=== PATIENT | female | born 1960 | race Caucasian/White ===

== ENCOUNTER → 2016-03-20 | Outpatient (CLI) | payer BC ==
--- NOTE | 2016-03-24 09:05 | MM ---
Reason for exam: screening (asymptomatic). Last mammogram was performed 1 year and 2 months ago. History: Patient is postmenopausal. Family history of breast cancer in mother at age 70 and breast cancer in sister at age 50. Physical Findings: A clinical breast exam by your physician is recommended on an annual basis and results should be correlated with mammographic findings. MG 3D Screening Mammo W/Cad Bilateral CC and MLO view(s) were taken. Prior study comparison: February 01, 2015, bilateral MG 3d screening mammo w/cad. July 20, 2013, bilateral MG screening mammo w CAD. June 23, 2011, bilateral digital screening mammo w/CAD. There are scattered fibroglandular densities. There is chronic nodularity in the right breast. No significant changes when compared with prior studies. ASSESSMENT: Negative, BI-RAD 1 RECOMMENDATION: Routine screening mammogram of both breasts in 1 year.
== END | disposition home or self-care (01) ==
LOC: RADMAMWWP 17:10
PROVIDERS: ATTEND Family Medicine
DX: Z12.31 Encounter for screening mammogram for malignant neoplasm of breast (principal)
CPT/HCPCS: 77063; G0202

== ENCOUNTER 2016-04-28 08:35 | Day surgery (SDC) | payer BC ==
[2016-04-24 09:37] VITALS: BMI 27.3
[~2016-04-28 08:35] MED LIST: LACTATED RINGERS 1,000 ML IV SCH; LIDOCAINE 1% 20 ML VIAL (10MG/ML) FOR IV START INTRADERMA PRN
[2016-04-28 08:59] VITALS: TEMP 98
[2016-04-28] MEDS ORDERED: PROPOFOL 10 MG/ML 20 ML VIAL IV ONE (09:47)
[2016-04-28] MEDS ORDERED: MIDAZOLAM 2 MG/2 ML VIAL ONE (09:47)
[2016-04-28 10:17] VITALS: RESP 18
--- NOTE | 2016-04-28 10:26 | P.PCN ---
Date of Procedure: 04/28/16 Procedure(s) Performed: Procedure: Total colonoscopy. Preoperative diagnosis: Screening for neoplasia. Postoperative diagnosis: Exam within normal limits. Preparation: HalfLytely prep. Sedation: Was provided by anesthesia. Brief clinical history: The patient is a 56-year-old female who is referred for this evaluation for screening for neoplasia. She had a prior exam more than 10 years ago. At this time, she has no abdominal complaints, bleeding or anemia. Procedure: With the patient on her left lateral decubitus position and after informed consent and adequate sedation, the perianal area was inspected and it did not show any fissures or fistulas. There were no masses felt on digital rectal examination. The Olympus CFQ 160L you colonoscope was then inserted in the rectum in the usual fashion and advanced to the cecum. The mucosa appeared healthy. No polyps or tumors were seen or any obvious diverticular disease. I retroflexed the endoscope in the rectum before the endoscope was withdrawn. The patient tolerated the procedure well. Plan: The patient was reassured. She will follow-up with you as planned and I recommended repeat exam in 10 years.
[2016-04-28 10:31] VITALS: BP 133/85; PULSE 57
== END 2016-04-28 10:47 | disposition home or self-care (01) ==
LOC: ORWHC2ENDO 08:35
DX: Z12.11 Encounter for screening for malignant neoplasm of colon (principal); J40 Bronchitis, not specified as acute or chronic; M19.90 Unspecified osteoarthritis, unspecified site; F17.200 Nicotine dependence, unspecified, uncomplicated; Z79.1 Long term (current) use of non-steroidal anti-inflammatories (NSAID); Z79.52 Long term (current) use of systemic steroids
CPT/HCPCS: J2250; J2704; G0121

== ENCOUNTER → 2016-08-15 | Outpatient (CLI) | payer BC ==
--- NOTE | 2016-08-15 14:46 | NM ---
EXAMINATION TYPE: NM bone/joint limited DATE OF EXAM: 08/15/2016 COMPARISON: Outside thoracic and lumbar spine x-rays August 14, 2016 HISTORY: Low back pain, lumbar region spondylolisthesis, lumbar region spinal stenosis, lumbar region collapse vertebra, idiopathic scoliosis, intervertebral disc degeneration with radiculopathy, skin p aresthesia, and thoracic spine pain all per order. Assess acuteness of L4 compression fracture. TECHNIQUE: After the intravenous administration of 25 mCi Tc 99m MDP. Images acquired 3 hours post injection. Multiple views of thoracic and lumbar are submitted in multiple projections. Findings: There is no commencing significant abnormal uptake at area of clinical concern superior L4 endplate to suggest acute fracture. Mild height loss is new from October 2014 radiograph however. M ild areas of increased uptake throughout the thoracolumbar spine are felt to reflect product of degen erative change. Additional compression fractures L1 and L2 levels do not show suspicious increased up take. IMPRESSION: No scintigraphic uptake to suggest acute compression fracture L4 level.
== END ==
LOC: RADNMMAIN 10:30
PROVIDERS: ATTEND Physical Medicine & Rehabilitation
DX: M48.06 Spinal stenosis, lumbar region (principal); M51.16 Intervertebral disc disorders with radiculopathy, lumbar region; M47.26 Other spondylosis with radiculopathy, lumbar region; M48.56XA Collapsed vertebra, not elsewhere classified, lumbar region, initial encounter for fracture; M41.26 Other idiopathic scoliosis, lumbar region
CPT/HCPCS: 78300; A9503

== ENCOUNTER 2017-08-13 14:28 | Emergency (ER) | payer BC ==
[2017-08-13 14:34] VITALS: RESP 18
[2017-08-13 15:11] LABS: Basophils # (A) 0.1 k/uL (0-0.2); Basophils % (A) 1 %; Eosinophils # (A) 0.2 k/uL (0-0.7); Eosinophils % (A) 3 %; HCT 45.8 % (34.0-46.0); HGB 15.9 gm/dL (11.4-16.0); Lymphocytes # (A) 1.8 k/uL (1.0-4.8); Lymphocytes % (A) 24 %; MCH 31.3 pg (25.0-35.0); MCHC 34.7 g/dL (31.0-37.0); MCV 90.1 fL (80.0-100.0); Mean Platelet Volume 8.4; Monocytes # (A) 0.4 k/uL (0-1.0); Monocytes % (A) 5 %; Neutrophils # (A) 5.1 k/uL (1.3-7.7); Neutrophils % (A) 66 %; Platelet Count 140 k/uL (150-450); RBC 5.08 m/uL (3.80-5.40); RDW 13.3 % (11.5-15.5); WBC 7.8 k/uL (3.8-10.6)
[2017-08-13 15:23] LABS: ALT 32 U/L (9-52); AST 20 U/L (14-36); Albumin 4.3 g/dL (3.5-5.0); Alkaline Phosphatase 97 U/L (38-126); Anion Gap 10 mmol/L; Blood Urea Nitrogen 14 mg/dL (7-17); Calcium 9.4 mg/dL (8.4-10.2); Carbon Dioxide 25 mmol/L (22-30); Chloride 107 mmol/L (98-107); Glucose 143 mg/dL (74-99); Sodium 142 mmol/L (137-145); Total Bilirubin 0.8 mg/dL (0.2-1.3); Total Protein 6.6 g/dL (6.3-8.2)
--- NOTE | 2017-08-13 15:24 | ED ---
General Adult HPI - General Chief complaint: Arrhythmia/Palpitations Stated complaint: heart palpitations Time Seen by Provider: 08/13/17 15:06 Source: patient, RN notes reviewed, old records reviewed Mode of arrival: ambulatory Limitations: no limitations - History of Present Illness Initial comments: 57 yo female presents for evaluation of palpitations. She has had intermittent palpitations over the past several years. She states that approximately 3 weeks ago she had an episode and then again today. This prompted medical evaluation. She was seen at an outside urgent care and sent in for evaluation. She denies any pain, denies chest tightness. She has had some dyspnea throughout the past several weeks. She denies any lower extremity pain or swelling. She is a current smoker, she reports multiple episodes of bronchitis but has no formal diagnosis of COPD. No history of CAD. No current medications. - Related Data Home Medications Medication Instructions Recorded Confirmed Fluocinolone 0.05% Solution 1 applic TOPICAL DAILY 08/13/17 08/13/17 Ketoconazole 2% Shampoo [Nizoral] 1 applic TOPICAL Q3D 08/13/17 08/13/17 Meloxicam [Mobic] 15 mg PO DAILY 08/13/17 08/13/17 Allergies Allergy/AdvReac Type Severity Reaction Status Date / Time No Known Allergies Allergy Verified 08/13/17 15:05 Review of Systems ROS Statement: Those systems with pertinent positive or pertinent negative responses have been documented in the HPI. ROS Other: All systems not noted in ROS Statement are negative. Past Medical History Past Medical History: Osteoarthritis (OA) History of Any Multi-Drug Resistant Organisms: None Reported Past Surgical History: Hysterectomy Additional Past Surgical History / Comment(s): colonoscopy Past Anesthesia/Blood Transfusion Reactions: No Reported Reaction Past Psychological History: Depression Smoking Status: Current every day smoker Past Alcohol Use History: None Reported Past Drug Use History: None Reported - Past Family History Mother Family Medical History: Cancer Brother(s) Family Medical History: Cancer Sister(s) Family Medical History: Cancer General Exam Limitations: no limitations General appearance: alert Head exam: Present: atraumatic, normocephalic Eye exam: Present: normal appearance, PERRL, EOMI ENT exam: Present: normal exam Neck exam: Present: normal inspection. Absent: tenderness, meningismus Respiratory exam: Present: wheezes. Absent: respiratory distress Cardiovascular Exam: Present: regular rate, irregular rhythm GI/Abdominal exam: Present: soft. Absent: distended, tenderness, guarding Extremities exam: Present: normal inspection, full ROM, normal capillary refill. Absent: pedal edema, calf tenderness Neurological exam: Present: alert, oriented X3, CN II-XII intact. Absent: motor sensory deficit Psychiatric exam: Present: normal affect, normal mood Skin exam: Present: warm, dry, intact. Absent: cyanosis, diaphoretic Course Vital Signs 08/13/17 08/13/17 14:32 16:25 Temperature 98 F Pulse Rate 49 L 73 Respiratory 18 18 Rate Blood Pressure 163/69 171/65 O2 Sat by Pulse 98 98 Oximetry EKG Findings - EKG Comments: EKG Findings:: EKG sinus rhythm, with marked sinus arrhythmia, nonspecific ST segment abnormalities including ST segment depression in the lateral precordium. Ventricular rate of 97, RI interval 148, QRS duration 78, QTC 477 Medical Decision Making - Medical Decision Making 57 female presenting with palpitations. Patient does have a irregular rhythm, this appears to be sinus with sinus arrhythmia however there is some concern for ectopic pacemaker with variable P-wave morphology. Electrolytes are obtained, these are negative for any acute abnormality. CBC is unremarkable. Troponin is negative. Patient has no pain. I would prefer she states for a second troponin to rule out any ischemia as her symptoms began approximately 2 hours prior to presentation. She declines. She is also offered observation for serial cardiac enzymes and cardiology consultation, however she declines. She will follow up as an outpatient. She will return with any worsening or changing symptoms. - Lab Data Result diagrams: 08/13/17 14:48 08/13/17 14:48 Lab Results 08/13/17 08/13/17 08/13/17 Range/Units 14:48 14:48 14:48 WBC 7.8 (3.8-10.6) k/uL RBC 5.08 (3.80-5.40) m/uL Hgb 15.9 (11.4-16.0) gm/dL Hct 45.8 (34.0-46.0) % MCV 90.1 (80.0-100.0) fL MCH 31.3 (25.0-35.0) pg MCHC 34.7 (31.0-37.0) g/dL RDW 13.3 (11.5-15.5) % Plt Count 140 L (150-450) k/uL Neutrophils % 66 % Lymphocytes % 24 % Monocytes % 5 % Eosinophils % 3 % Basophils % 1 % Neutrophils # 5.1 (1.3-7.7) k/uL Lymphocytes # 1.8 (1.0-4.8) k/uL Monocytes # 0.4 (0-1.0) k/uL Eosinophils # 0.2 (0-0.7) k/uL Basophils # 0.1 (0-0.2) k/uL PT (9.0-12.0) sec INR (<1.2) APTT (22.0-30.0) sec D-Dimer (<0.60) mg/L FEU Sodium 142 (137-145) mmol/L Potassium 4.0 (3.5-5.1) mmol/L Chloride 107 (98-107) mmol/L Carbon Dioxide 25 (22-30) mmol/L Anion Gap 10 mmol/L BUN 14 (7-17) mg/dL Creatinine 0.70 (0.52-1.04) mg/dL Est GFR (CKD-EPI)AfAm >90 (>60 ml/min/1.73 sqM) Est GFR (CKD-EPI)NonAf >90 (>60 ml/min/1.73 sqM) Glucose 143 H (74-99) mg/dL Calcium 9.4 (8.4-10.2) mg/dL Magnesium 2.0 (1.6-2.3) mg/dL Total Bilirubin 0.8 (0.2-1.3) mg/dL AST 20 (14-36) U/L ALT 32 (9-52) U/L Alkaline Phosphatase 97 (38-126) U/L Total Creatine Kinase 46 (30-135) U/L CK-MB (CK-2) 0.5 (0.0-2.4) ng/mL CK-MB (CK-2) Rel Index 1.1 Troponin I <0.012 (0.000-0.034) ng/mL Total Protein 6.6 (6.3-8.2) g/dL Albumin 4.3 (3.5-5.0) g/dL 08/13/17 Range/Units 14:48 WBC (3.8-10.6) k/uL RBC (3.80-5.40) m/uL Hgb (11.4-16.0) gm/dL Hct (34.0-46.0) % MCV (80.0-100.0) fL MCH (25.0-35.0) pg MCHC (31.0-37.0) g/dL RDW (11.5-15.5) % Plt Count (150-450) k/uL Neutrophils % % Lymphocytes % % Monocytes % % Eosinophils % % Basophils % % Neutrophils # (1.3-7.7) k/uL Lymphocytes # (1.0-4.8) k/uL Monocytes # (0-1.0) k/uL Eosinophils # (0-0.7) k/uL Basophils # (0-0.2) k/uL PT 9.8 (9.0-12.0) sec INR 1.0 (<1.2) APTT 24.6 (22.0-30.0) sec D-Dimer 0.21 (<0.60) mg/L FEU Sodium (137-145) mmol/L Potassium (3.5-5.1) mmol/L Chloride (98-107) mmol/L Carbon Dioxide (22-30) mmol/L Anion Gap mmol/L BUN (7-17) mg/dL Creatinine (0.52-1.04) mg/dL Est GFR (CKD-EPI)AfAm (>60 ml/min/1.73 sqM) Est GFR (CKD-EPI)NonAf (>60 ml/min/1.73 sqM) Glucose (74-99) mg/dL Calcium (8.4-10.2) mg/dL Magnesium (1.6-2.3) mg/dL Total Bilirubin (0.2-1.3) mg/dL AST (14-36) U/L ALT (9-52) U/L Alkaline Phosphatase (38-126) U/L Total Creatine Kinase (30-135) U/L CK-MB (CK-2) (0.0-2.4) ng/mL CK-MB (CK-2) Rel Index Troponin I (0.000-0.034) ng/mL Total Protein (6.3-8.2) g/dL Albumin (3.5-5.0) g/dL Disposition Clinical Impression: Palpitations, Sinus arrhythmia Disposition: HOME SELF-CARE Condition: Fair Instructions: Palpitations (ED) Is patient prescribed a controlled substance at d/c from ED?: No Referrals: Jason Grant MD [Primary Care Provider] - 1-2 days Deyvi Oliveira MD [STAFF PHYSICIAN] - 1-2 days Time of Disposition: 17:34
[2017-08-13 15:25] LABS: D-Dimer 0.21 mg/L FEU (<0.60); Partial Thromboplastin Time 24.6 sec (22.0-30.0); Prothrombin Time 9.8 sec (9.0-12.0)
--- NOTE | 2017-08-13 15:31 | XR ---
EXAMINATION TYPE: XR chest 2V DATE OF EXAM: 08/13/2017 COMPARISON: NONE HISTORY: Palpitations and chest pain TECHNIQUE: Frontal and lateral views of the chest are obtained. FINDINGS: There is no focal air space opacity, pleural effusion, or pneumothorax seen. The cardiac silhouette size is within normal limits. The osseous structures are intact. IMPRESSION: No acute cardiopulmonary process.
[2017-08-13 15:32] LABS: Creatine Kinase 46 U/L (30-135)
[2017-08-13 15:44] LABS: Creatine Kinase MB 0.5 ng/mL (0.0-2.4); Troponin I <0.012 ng/mL (0.000-0.034)
[2017-08-13] MEDS ORDERED: SODIUM CHLORIDE 0.9% 500 ML IV ONE (16:08)
[2017-08-13 17:43] VITALS: BP 137/72; PULSE 71; TEMP 98.2
== END 2017-08-13 17:48 | disposition home or self-care (01) ==
LOC: EC 14:28
DX: I49.8 Other specified cardiac arrhythmias (principal); R00.2 Palpitations; R06.2 Wheezing; M19.90 Unspecified osteoarthritis, unspecified site; F17.200 Nicotine dependence, unspecified, uncomplicated; Z79.1 Long term (current) use of non-steroidal anti-inflammatories (NSAID); Z79.52 Long term (current) use of systemic steroids; Z79.899 Other long term (current) drug therapy
CPT/HCPCS: 36415; 71046; 80053; 82550; 82553; 83735; 84484; 85025; 85379; 85610; 85730; 93005; 99285

== ENCOUNTER → 2018-02-04 | Outpatient (CLI) | payer BC ==
--- NOTE | 2018-02-05 11:17 | MM ---
Reason for exam: screening (asymptomatic). Last mammogram was performed 1 year and 11 months ago. History: Patient is postmenopausal. Family history of breast cancer in mother at age 70 and breast cancer in sister at age 50. Physical Findings: A clinical breast exam by your physician is recommended on an annual basis and results should be correlated with mammographic findings. MG Screening Mammo w CAD Bilateral CC and MLO view(s) were taken. Prior study comparison: March 20, 2016, bilateral MG 3d screening mammo w/cad. February 01, 2015, bilateral MG 3d screening mammo w/cad. There are scattered fibroglandular densities. No significant changes when compared with prior studies. ASSESSMENT: Benign, BI-RAD 2 RECOMMENDATION: Routine screening mammogram of both breasts in 1 year.
== END | disposition home or self-care (01) ==
LOC: RADMAMWWP 16:19
PROVIDERS: ATTEND Family Medicine
DX: Z12.31 Encounter for screening mammogram for malignant neoplasm of breast (principal)
CPT/HCPCS: 77067

== ENCOUNTER 2021-01-18 17:33 | Emergency (ER) | payer BC, OTHER ==
[2021-01-18] MEDS ORDERED: ONDANSETRON 4 MG/2 ML VIAL IVP STA (19:26)
[2021-01-18] MEDS ORDERED: HYDROmorphone 1 MG/ML 1 ML SYRINGE IVP STA (19:26)
--- NOTE | 2021-01-18 19:43 | ED ---
General Adult HPI - General Chief complaint: Recheck/Abnormal Lab/Rx Stated complaint: Feeding tube issues Time Seen by Provider: 01/18/21 19:03 Source: patient Mode of arrival: ambulatory Limitations: no limitations - History of Present Illness Initial comments: 60 year-old female patient currently being treated for esophageal cancer, presents to the emergency department for evaluation of drainage from around her PEG tube insertion site and inability to control her pain. She had the feeding tube placed in November. States she was admitted recently for infection to the site. States she has had increased drainage from the site and is concerned it is infected again. States that for the last two days she has been unable to control her pain. States she takes liquid norco and has a fentanyl patch and it seems that the medications are not working. Patient denies any fever or chills. States she has been vomiting. Denies any hematemesis. She is currently receiving chemotherapy and radiation at [facility] in [place]. She believes she is on antibiotics but she is unsure what antibiotic she is on. - Related Data Home Medications Medication Instructions Recorded Confirmed Albuterol Sulfate [Ventolin HFA] 2 puff INHALATION RT-Q4H PRN 01/18/21 01/18/21 Gabapentin [Gabapentin Oral Soln] 300 mg PO HS 01/18/21 01/18/21 HYDROcodone/APAP [Coffeen Elixir 15 - 20 ml PO Q4HR PRN 01/18/21 01/18/21 7.5-325Mg/15Ml] Metoclopramide HCl 10 mg PO TID PRN 01/18/21 01/18/21 Omeprazole 40 mg PO DAILY 01/18/21 01/18/21 Polyethylene Glycol 3350 [Miralax] 17 gm PO DAILY PRN 01/18/21 01/18/21 Prochlorperazine [Compazine] 10 mg PO QID PRN 01/18/21 01/18/21 Sennosides [Senna] 8.6 mg PO BID PRN 01/18/21 01/18/21 Umeclidinium Brm/Vilanterol Tr 1 puff INHALATION RT-DAILY 01/18/21 01/18/21 [Anoro Ellipta 62.5-25 Mcg INH] bisacodyL [Dulcolax] 10 mg RECTAL DAILY PRN 01/18/21 01/18/21 dexAMETHasone 1 dose PO DIRECTED 01/18/21 01/18/21 fentaNYL 12MCG/HR PATCH [Duragesic 1 patch TRANSDERM Q72H 01/18/21 01/18/21 12MCG/HR] Previous Rx's Medication Instructions Recorded Cephalexin [Keflex] 500 mg PO Q6HR #40 cap 01/18/21 Prochlorperazine [Compazine] 10 mg PO Q8H #20 tab 01/18/21 Allergies Allergy/AdvReac Type Severity Reaction Status Date / Time No Known Allergies Allergy Verified 01/18/21 21:46 Review of Systems ROS Statement: Those systems with pertinent positive or pertinent negative responses have been documented in the HPI. ROS Other: All systems not noted in ROS Statement are negative. Past Medical History Past Medical History: Osteoarthritis (OA) Additional Past Medical History / Comment(s): CA History of Any Multi-Drug Resistant Organisms: None Reported Past Surgical History: Hysterectomy Additional Past Surgical History / Comment(s): colonoscopy, feeding tube Past Anesthesia/Blood Transfusion Reactions: No Reported Reaction Past Psychological History: Depression Smoking Status: Never smoker Past Alcohol Use History: None Reported Past Drug Use History: None Reported - Past Family History Mother Family Medical History: Cancer Brother(s) Family Medical History: Cancer Sister(s) Family Medical History: Cancer General Exam Limitations: no limitations General appearance: alert, in no apparent distress, other (This is a well- developed, well-nourished adult female patient in mild distress related to pain.) ENT exam: Present: normal exam, normal oropharynx, mucous membranes moist Respiratory exam: Present: normal lung sounds bilaterally. Absent: respiratory distress, wheezes, rales, rhonchi, stridor Cardiovascular Exam: Present: regular rate, normal rhythm, normal heart sounds. Absent: systolic murmur, diastolic murmur, rubs, gallop, clicks GI/Abdominal exam: Present: soft, tenderness (midepigastric), normal bowel sounds, other (Left mid abdomen PEG tube, there is green clear drainage from the site. ). Absent: distended, guarding, rebound, rigid Neurological exam: Present: alert, oriented X3, CN II-XII intact Psychiatric exam: Present: normal affect, normal mood Skin exam: Present: warm, dry, intact, normal color. Absent: rash Course Vital Signs 01/18/21 01/18/21 17:56 22:08 Temperature 98.2 F Pulse Rate 115 H 106 H Respiratory 20 18 Rate Blood Pressure 106/73 126/83 O2 Sat by Pulse 98 97 Oximetry Medical Decision Making - Medical Decision Making 60 year-old female presented for drainage from around PEG tube insertion site. She also reported vomiting but states that is common for her since her diagnosis of esophageal cancer. Physical examination did reveal clear bilious drainage from the insertion site, mild erythema surrounding most likely due to irritati on. Labs reviewed and showed low sodium at 128, normal wbc count. She is afebrile with normal vital signs. She was given pain medication, nausea medication. Upon re-evaluation she states she is feeling better. She will be given keflex for possible early cellulitis. Prescription for Compazine. She is instructed to follow-up with her oncologist and primary care physician as soon as possible. Return parameters were discussed in detail. She verbalizes understanding and agrees with this plan. My attending is Dr. Mujica. - Lab Data Result diagrams: 01/18/21 20:26 01/18/21 20:26 Lab Results 01/18/21 01/18/21 01/18/21 Range/Units 20:26 20:26 20:26 WBC 7.5 (3.8-10.6) k/uL RBC 3.36 L (3.80-5.40) m/uL Hgb 9.7 L (11.4-16.0) gm/dL Hct 30.3 L (34.0-46.0) % MCV 90.3 (80.0-100.0) fL MCH 28.9 (25.0-35.0) pg MCHC 32.0 (31.0-37.0) g/dL RDW 17.6 H (11.5-15.5) % Plt Count 218 (150-450) k/uL MPV 8.4 Neutrophils % 91 % Lymphocytes % 3 % Monocytes % 4 % Eosinophils % 1 % Basophils % 0 % Neutrophils # 6.8 (1.3-7.7) k/uL Lymphocytes # 0.2 L (1.0-4.8) k/uL Monocytes # 0.3 (0-1.0) k/uL Eosinophils # 0.1 (0-0.7) k/uL Basophils # 0.0 (0-0.2) k/uL Anisocytosis Slight Sodium 128 L (137-145) mmol/L Potassium 3.9 (3.5-5.1) mmol/L Chloride 92 L (98-107) mmol/L Carbon Dioxide 30 (22-30) mmol/L Anion Gap 6 mmol/L BUN 15 (7-17) mg/dL Creatinine 0.26 L (0.52-1.04) mg/dL Est GFR (CKD-EPI)AfAm >90 (>60 ml/min/1.73 sqM) Est GFR (CKD-EPI)NonAf >90 (>60 ml/min/1.73 sqM) Glucose 112 H (74-99) mg/dL Plasma Lactic Acid Babatunde 1.8 (0.7-2.0) mmol/L Calcium 8.7 (8.4-10.2) mg/dL Total Bilirubin 0.5 (0.2-1.3) mg/dL AST 22 (14-36) U/L ALT 16 (4-34) U/L Alkaline Phosphatase 89 (38-126) U/L Total Protein 5.9 L (6.3-8.2) g/dL Albumin 3.1 L (3.5-5.0) g/dL Urine Color Urine Appearance (Clear) Urine pH (5.0-8.0) Ur Specific Bill[place] (1.001-1.035) Urine Protein (Negative) Urine Glucose (UA) (Negative) Urine Ketones (Negative) Urine Blood (Negative) Urine Nitrite (Negative) Urine Bilirubin (Negative) Urine Urobilinogen (<2.0) mg/dL Ur Leukocyte Esterase (Negative) 01/18/21 Range/Units 22:08 WBC (3.8-10.6) k/uL RBC (3.80-5.40) m/uL Hgb (11.4-16.0) gm/dL Hct (34.0-46.0) % MCV (80.0-100.0) fL MCH (25.0-35.0) pg MCHC (31.0-37.0) g/dL RDW (11.5-15.5) % Plt Count (150-450) k/uL MPV Neutrophils % % Lymphocytes % % Monocytes % % Eosinophils % % Basophils % % Neutrophils # (1.3-7.7) k/uL Lymphocytes # (1.0-4.8) k/uL Monocytes # (0-1.0) k/uL Eosinophils # (0-0.7) k/uL Basophils # (0-0.2) k/uL Anisocytosis Sodium (137-145) mmol/L Potassium (3.5-5.1) mmol/L Chloride (98-107) mmol/L Carbon Dioxide (22-30) mmol/L Anion Gap mmol/L BUN (7-17) mg/dL Creatinine (0.52-1.04) mg/dL Est GFR (CKD-EPI)AfAm (>60 ml/min/1.73 sqM) Est GFR (CKD-EPI)NonAf (>60 ml/min/1.73 sqM) Glucose (74-99) mg/dL Plasma Lactic Acid Bab[place]unde (0.7-2.0) mmol/L Calcium (8.4-10.2) mg/dL Total Bilirubin (0.2-1.3) mg/dL AST (14-36) U/L ALT (4-34) U/L Alkaline Phosphatase (38-126) U/L Total Protein (6.3-8.2) g/dL Albumin (3.5-5.0) g/dL Urine Color Yellow Urine Appearance Clear (Clear) Urine pH 6.5 (5.0-8.0) Ur Specific Bill[place] 1.019 (1.001-1.035) Urine Protein Negative (Negative) Urine Glucose (UA) Negative (Negative) Urine Ketones Negative (Negative) Urine Blood Negative (Negative) Urine Nitrite Negative (Negative) Urine Bilirubin Negative (Negative) Urine Urobilinogen <2.0 (<2.0) mg/dL Ur Leukocyte Esterase Negative (Negative) Disposition Clinical Impression: Cellulitis, abdominal wall, Vomiting Disposition: HOME SELF-CARE Condition: Good Instructions (If sedation given, give patient instructions): Cellulitis (ED), Acute Nausea and Vomiting (ED) Additional Instructions: Complete antibiotic prescription in full. Follow-up with your oncologist and primary care physician for recheck as soon as possible. Return to the emergency department for any new, worsening, or concerning symptoms. Prescriptions: Prochlorperazine [Compazine] 10 mg PO Q8H #20 tab Cephalexin [Keflex] 500 mg PO Q6HR #40 cap Is patient prescribed a controlled substance at d/c from ED?: No Referrals: Raven Watson MD [Primary Care Provider] - 1-2 days Time of Disposition: 23:16
[2021-01-18 20:33] LABS: Anisocytosis Slight; Basophils % (A) 0 %; Eosinophils # (A) 0.1 k/uL (0-0.7); Eosinophils % (A) 1 %; HCT 30.3 % (34.0-46.0); HGB 9.7 gm/dL (11.4-16.0); Lymphocytes # (A) 0.2 k/uL (1.0-4.8); Lymphocytes % (A) 3 %; MCH 28.9 pg (25.0-35.0); MCV 90.3 fL (80.0-100.0); Mean Platelet Volume 8.4; Monocytes # (A) 0.3 k/uL (0-1.0); Monocytes % (A) 4 %; Neutrophils # (A) 6.8 k/uL (1.3-7.7); Neutrophils % (A) 91 %; Platelet Count 218 k/uL (150-450); RBC 3.36 m/uL (3.80-5.40); RDW 17.6 % (11.5-15.5); WBC 7.5 k/uL (3.8-10.6)
[2021-01-18 20:50] LABS: ALT 16 U/L (4-34); AST 22 U/L (14-36); African American GFR (CKD) >90 (>60 ml/min/1.73 sqM); Albumin 3.1 g/dL (3.5-5.0); Alkaline Phosphatase 89 U/L (38-126); Anion Gap 6 mmol/L; Blood Urea Nitrogen 15 mg/dL (7-17); Calcium 8.7 mg/dL (8.4-10.2); Carbon Dioxide 30 mmol/L (22-30); Chloride 92 mmol/L (98-107); Glucose 112 mg/dL (74-99); Non-African American GFR(CKD) >90 (>60 ml/min/1.73 sqM); Potassium 3.9 mmol/L (3.5-5.1); Sodium 128 mmol/L (137-145); Total Bilirubin 0.5 mg/dL (0.2-1.3); Total Protein 5.9 g/dL (6.3-8.2)
[2021-01-18] MEDS: SODIUM CHLORIDE 0.9% 500 ML 500 ML IV SCH ×2 (20:51→22:11)
[2021-01-18] MEDS ORDERED: HYDROmorphone 0.5 MG/0.5 ML SYRINGE IVP STA (21:55)
[2021-01-18] MEDS ORDERED: PROCHLORPERAZINE INJ 10 MG/2 ML VIAL IVP STA (21:56)
[2021-01-18] MEDS ORDERED: diphenhydrAMINE 50 MG/ML 1 ML VIAL IVP STA (21:56)
[2021-01-18 22:10] VITALS: BP 126/83; PULSE 106; RESP 18
[2021-01-18 22:37] LABS: Appearance,Urine Clear (Clear); Bilirubin,Urine Negative (Negative); Blood,Urine Negative (Negative); Color,Urine Yellow; Glucose,Urine (UA) Negative (Negative); Ketones,Urine Negative (Negative); Leukocyte Esterase,Urine Negative (Negative); Nitrite,Urine Negative (Negative); PH, Urine 6.5 (5.0-8.0); Protein,Urine Negative (Negative); Specific Gravity,Urine 1.019 (1.001-1.035); Urobilinogen,Urine <2.0 mg/dL (<2.0)
[2021-01-18] MEDS ORDERED: CEPHALEXIN 500MG STARTER PACK 4 CAP BTL PO STA (23:14)
[2021-01-19 01:03] VITALS: TEMP 1
== END 2021-01-19 01:04 | disposition home or self-care (01) ==
LOC: EC 17:33
DX: L03.311 Cellulitis of abdominal wall (principal); R11.10 Vomiting, unspecified; M19.90 Unspecified osteoarthritis, unspecified site; F32.A Depression, unspecified; Z79.899 Other long term (current) drug therapy
CPT/HCPCS: 36415; 80053; 83605; 85025; 81003; 87040; 99283; 96374; 96375 ×3; 96361; J1200; J0780; J2405; J1170 ×2